=== PATIENT | male | born 1995 | race African-American/Black ===

== ENCOUNTER 2018-08-26 20:33 | Emergency (ER) | payer SELFPAY ==
[2018-08-26] MEDS ORDERED: diphenhydrAMINE 25 MG CAP ONE (21:11)
[2018-08-26] MEDS ORDERED: Metoclopramide HCl 10 MG/2 ML VIAL ONE (21:11)
--- NOTE | 2018-08-26 21:23 | CT ---
CT OF THE BRAIN WITHOUT CONTRAST: 08/26/18 Hematoma is seen in the soft tissues of the forehead, mainly over the right frontal bone. The underly ing skull appeared intact with no sign of fracture. No intracranial bleeding or extra-axial hematoma was seen within the cranial cavity. The ventricles are normal in size with no shift. There is no sign of mass or edema or stroke. A rounded soft tissue mass in the left maxillary sinus is probably a retention cyst. IMPRESSION: 1. Soft tissue hematoma over the forehead but no acute intracranial findings. 2. Probable mucous retention cyst of the left maxillary sinus. POS: HOME
--- NOTE | 2018-08-26 21:25 | CT ---
CT OF THE CERVICAL SPINE: 08/26/18 There is straightening of the cervical spine which may be due to muscle spasm. No fracture, dislocati on, or disc space narrowing was seen. The C1 to dens distance is normal and the soft tissues are norm al in thickness. There is no evidence of central canal stenosis or foraminal stenosis. The surroundin g soft tissues were unremarkable. An incidental finding is a rounded mass in the left maxillary sinus that is most likely a mucous retention cyst. IMPRESSION: Straightening of the cervical spine, most likely due to muscle spasm. POS: HOME
== END 2018-08-26 21:35 | disposition home or self-care (01) ==
LOC: BURERS 20:33
DX: S06.0X0A Concussion without loss of consciousness, initial encounter (principal); S01.81XA Laceration without foreign body of other part of head, initial encounter; W19.XXXA Unspecified fall, initial encounter; Y93.02 Activity, running
CPT/HCPCS: 70450; 72125; J2765; Q0163

== ENCOUNTER 2018-10-30 13:52 | Emergency (ER) | payer SELFPAY ==
[~2018-10-30 13:52] MED LIST: Iopamidol 370 76% 100 ML VIAL ONE
[2018-10-30] MEDS ORDERED: Fentanyl 100 MCG/2 ML VIAL ONE ×3 (14:02→15:15)
[2018-10-30 14:10] LABS: #Basophils 0.1 thou/uL (0.0-0.2); #Eosinphils 0.1 thou/uL (0.0-0.7); #Lymphocytes 2.9 thou/uL (1.20-3.40); #Monocytes 0.3 thou/uL (0.11-0.59); %Eosinophils 0.9 % (0.0-10.0); %Lymphocytes 39.6 % (21.0-51.0); %Monocytes 4.5 % (0.0-10.0); Hemoglobin 13.8 g/dL (14.0-18.0); Mean Corpuscular HGB CONC 33.8 g/dL (32.0-36.0); Mean Corpuscular Hemoglobin 32.9 pg (27.0-31.0); Mean Corpuscular Volume 97.5 fL (78.0-98.0); Mean Platelet Volume 10.3 fL (7.4-10.4); Platelet Count 201 thou/uL (130-400); RBC Distribution Width 10.9 % (11.5-14.5); Red Blood Cell (RBC) Count 4.18 mill/uL (4.70-6.10); White Blood Cell (WBC) Count 7.4 thou/uL (4.8-10.8)
[2018-10-30 14:26] LABS: ALT (SGPT) 34 U/L (8-55); AST (SGOT) 29 U/L (5-34); Acetaminophen Less than 6.0 mcg/mL (10.0-30.0); Albumin 4.6 g/dL (3.5-5.0); Alcohol Less than 10 mg/dL (Less than 10); Alkaline Phosphatase 64 U/L (40-150); Anion Gap 18 mmol/L (10-20); BUN (Urea Nitrogen) 16 mg/dL (8.9-20.6); Bilirubin, Total 0.6 mg/dL (0.2-1.2); Calc. Creatinine Clearance 0 mL/min (70-130); Calcium 9.8 mg/dL (7.8-10.44); Carbon Dioxide 18 mmol/L (22-29); Chloride 109 mmol/L (98-107); Estimated GFR-MDRD Greater than 90; Globulin 2.8 g/dL (2.4-3.5); Glucose 188 mg/dL (70-105); Potassium 3.6 mmol/L (3.5-5.1); Protein, Total 7.4 g/dL (6.0-8.3); Salicylate Less than 8.0 mg/dL (15.0-30.0); Sodium 141 mmol/L (136-145)
[2018-10-30] MEDS ORDERED: Ketamine 50 MG/ML (10ML VIAL) ONE (15:15)
[2018-10-30] MEDS ORDERED: HYDROcodone/Acetaminophen 5/325 mg Tablet ONE (16:29)
[2018-10-30] MEDS ORDERED: Ketorolac Tromethamine 60 MG/2 ML VIAL ONE (16:35)
--- NOTE | 2018-10-30 18:16 | CT ---
CT CERVICAL SPINE: Date: 10/30/[address] of the cervical spine was done following trauma. Axial slices were acquired, followed by co eulalia and sagittal reconstructions. There is loss of the normal cervical lordosis, which may be due to muscle spasm. No acute fracture or dislocation seen. The disc spaces are normal in height. The C1 to dens distance is normal, and the s oft tissues are normal in thickness. The spinal canal and neural foramina showed no particular narrow ing. Scans of some of the upper thoracic vertebra were affected by motion artifact. IMPRESSION: No acute cervical findings, except for straightening of the cervical spine. POS: HOME
--- NOTE | 2018-10-30 18:18 | CT ---
CT BRAIN WITHOUT CONTRAST: Date: 10/30/[address] shows normal size ventricles with no shift. No intracranial bleeding or extra-axial he matoma seen. No sign of mass, stroke, or edema. The calvarium appears intact. The sphenoid sinus and mastoid air cells are clear. A large retention cyst is seen in the left maxillary sinus. IMPRESSION: No acute intracranial findings. Preliminary report for all scans called to Dr. Stokes at 1441 hours on 10/30/18. CODE CR. POS: HOME
--- NOTE | 2018-10-30 18:22 | CT ---
CT CHEST AND ABDOMEN AND PELVIS WITH CONTRAST: Date: 10/30/[address] of the chest, abdomen, and pelvis was done following trauma. Axial slices were acquired, fo llowed by coronal and sagittal reconstructions. All exams were done after IV contrast was employed. CT THORAX: There is no sign of mediastinal hematoma or pericardial effusion. The trachea does deviate to the rig ht at the thoracic inlet, but there is no observable cause for it other than it passing the aortic ar ch. The latter is not dilated and shows no sign of enlargement, dissection, or aneurysm. The lungs ar e clear except for some dependent atelectasis. No pneumothorax, pulmonary contusion, or significant p leural effusion seen. The thoracic spine and other bony structures of the thorax appear intact. I wou ld not, however, on the central office frame wirer film, one can see a fracture of the left mid humeral shaft. CT ABDOMEN/PELVIS: The liver, spleen, pancreas, gallbladder, adrenal glands, kidneys, and abdominal aorta all appear nor mal. No sign of laceration, hematoma, or contusion of any major organ. The stomach is moderately dist ended with fluid. There is no dilation of bowel, bowel wall thickening, or other acute intestinal ab nge. No free air or free fluid evident. CT of pelvis showed no pelvic masses, fluid collections, or hematomas. The pelvic bones and hips appe ared intact. The lumbar spine appeared intact. A line through the left transverse process of L1 appea rs to be either developmental or an old injury. It does not appear acute. IMPRESSION: 1. Acute angulated fracture of the mid shaft of the left humerus. 2. No acute changes internally in the chest, abdomen, or pelvis referable to trauma. 3. Slight tracheal deviation to the right at the thoracic inlet, but this does not appear to be rela robi to current trauma. Report called to Dr. Verdugo @ 1442 on 10/30/18. POS: HOME
--- NOTE | 2018-10-30 18:23 | RAD ---
LEFT KNEE: Date: 10/30/18 Multiple views show no sign of acute fracture. There is an old ACL reconstruction noted. No joint eff usion seen. The articular surfaces show no acute change. IMPRESSION: Old postoperative changes, but no acute finding. POS: HOME
--- NOTE | 2018-10-30 18:24 | RAD ---
LEFT LEG: Date: 10/30/18 AP and lateral views show no acute fractures. The ankle is not shown well enough to evaluate, however . IMPRESSION: No acute bony findings. Ankle incompletely evaluated. POS: HOME
--- NOTE | 2018-10-30 18:25 | RAD ---
LEFT HUMERUS: Date: 10/30/18 Two views left humerus show a markedly angulated and distracted fracture of the humeral mid shaft. Th ere has been a prior open reduction and internal fixation of a humeral neck fracture. Distal humerus appears grossly intact. IMPRESSION: Angulated fracture of the humeral shaft. POS: HOME
--- NOTE | 2018-10-30 18:32 | RAD ---
LEFT HUMERUS POST REDUCTION: Date: 10/30/18 A single post-reduction view was submitted. The angulation of the humeral shaft fracture has been gr eatly improved. There is some distraction of the fragments. Other views are needed to properly asse ss alignment. IMPRESSION: Significant improvement in fracture alignment since reduction POS: HOME
== END 2018-10-30 16:45 | disposition home or self-care (01) ==
LOC: BURERS 13:52
DX: S42.302A Unspecified fracture of shaft of humerus, left arm, initial encounter for closed fracture (principal); V86.59XA Driver of other special all-terrain or other off-road motor vehicle injured in nontraffic accident, initial encounter
CPT/HCPCS: 70450; 71260; 72125; 74177; 80053; 80307; 85025; 96372; 96374; 96375; 96376; G0390; J1885; J3010; Q9967